=== PATIENT | male | born 1940 | race Caucasian/White ===

== ENCOUNTER 2020-02-23 08:01 | Day surgery (SDC) | payer OTHER ==
[2020-02-20 11:14] LABS: Absolute Lymphocytes (CBC) 2.9 K/uL (0.7-4.9); Basophils % 0.9 % (0-1.3); Hematocrit 45.6 % (39.6-49.0); Lymphocytes % 15.9 % (15.3-44.8); MPV 8.8 fL (7.6-11.3); RBC Red Blood Cell Count 4.85 M/uL (4.33-5.43)
[2020-02-20 11:17] LABS: Protime INR 0.88
[2020-02-20 11:34] LABS: Potassium 3.9 mmol/L (3.5-5.1)
--- NOTE | 2020-02-20 12:01 | RAD REPORT ---
EXAM DESCRIPTION: RAD - Chest Pa And Lat (2 Views) - 02/20/2020 10:52 am CLINICAL HISTORY: left heart cath, preop examination COMPARISON: CT chest September 15, AP chest March 2011 TECHNIQUE: Frontal and lateral views of the chest were obtained. FINDINGS: The lungs are fibrotic as a baseline with flattened diaphragm. Fibrotic changes in the exp anded right hemithorax are more pronounced at the base. Bullous changes are prominent in the upper ri ght lung field. Left hemithorax shows a reduced volume relative to the right. There is a dominant per ipheral subpleural fibrotic pattern present. No dense mass or consolidation. Failure and volume overl oad are not suspected. Heart size is normal and central vasculature is within normal limits. No pleural effusion or pneu mothorax seen. No acute bony finding noted. No aortic abnormality. IMPRESSION: Marked COPD pattern is present. Findings are most pronounced in the lateral aspect of th e volume reduced left hemithorax. When comparing with the August study, the chest findings are not clearly different.
[~2020-02-23 08:01] MED LIST: NA CHLORIDE 0.9% 500 ML ONE
[2020-02-23] MEDS ORDERED: HEPA 1000U/500MLS 2,000 UNIT/1,000 ML BAG IV ONE ×2 (08:46→08:50)
[2020-02-23] MEDS ORDERED: HEPARIN 5000 UNIT/ML 1 ML VIAL ONE (08:50)
[2020-02-23] MEDS ORDERED: MIDAZOLAM HCL 2 MG/2 ML INJ ONE (08:50)
[2020-02-23] MEDS ORDERED: FENTANYL CITR 100 MCG/2 ML ONE (08:50)
[2020-02-23] MEDS ORDERED: HEPARIN 10,000 UNIT/10 ML VIAL IV ONE (08:50)
[2020-02-23] MEDS ORDERED: NICARDIPINE HCL 25 MG/10 ML IV ONE (08:51)
[2020-02-23] MEDS ORDERED: NITROGLYCERIN 100 MCG/ML SYR (for cath lab use only) IV ONE (08:51)
[2020-02-23] MEDS ORDERED: ATROPINE SULF 1 MG/10 ML SYR IV ONE (08:51)
[2020-02-23 10:22] VITALS: TEMP 97.3
[2020-02-23 14:06] VITALS: BP 134/49; O2SAT 96
--- NOTE | 2020-02-24 01:10 | OP ---
Date of Procedure: 02/23/2020 Surgeon: JAXON LICONA Procedure Performed: 1.Selective coronary angiogram. 2.Left heart catheterization. Indication: Unstable angina. Access: Right radial artery 6-Wolof, closed with TR band. Total Sedation Time: 25 minutes. Complications: None. Bleeding: Less than 10 mL. Description Of Procedure: After risks, benefits, and alternatives were explained to the patient, the patient agreed to the procedure and signed informed consent. We accessed the right radial artery us ing pediatric micropuncture kit and placed a 6-Wolof slender sheath. Then, we took a 5-Wolof Beyer catheter into the aortic root over a J-wire, engaged the left coronary artery and then right coronar y artery, took standard views and then we took the J-wire across the aortic valve, passed the cathete r into the LV and we measured the LVEDP and then upon pullback, there was no difference in gradient. We took wires and catheters out and the sheath and we closed the access using TR band. Findings: 1.LEFT main is normal and large. 2.LAD is normal. Moderate size vessel with no disease. 3.Left circumflex is normal, moderate size vessel. No disease. 4.Ramus intermedius is a moderate size vessel, has a mid 50% stenosis. 5.RCA is normal vessel and is dominant. No disease. LVEDP measured 21 mmHg. Impression: [id number] ramus intermedius disease, otherwise normal coronary arteries. Elevated left ventricular end-diastolic pressure. Recommendation: 1.Aggressive medical management of coronary artery disease and he might benefit from introduction of diuretics as well. 2.Discharge home once discharge criteria are met and follow up in the office in 4 weeks. /ABELL Voice ID: [id number] Report ID: [id number]
== END 2020-02-23 13:25 | disposition home or self-care (01) ==
LOC: CCL 08:01
PROVIDERS: ATTEND Internal Medicine
DX: I25.110 Atherosclerotic heart disease of native coronary artery with unstable angina pectoris (principal); I10 Essential (primary) hypertension; R42 Dizziness and giddiness; F17.210 Nicotine dependence, cigarettes, uncomplicated; Z11.59 Encounter for screening for other viral diseases
CPT/HCPCS: 85025; 80048; 36415; 85610; 85730; 71046; 93458; U0002; C1893; J1644 ×3; J2250; J3010; J7040

== ENCOUNTER 2020-09-27 09:13 | Inpatient (IN) | payer OTHER ==
[2020-09-24 14:03] LABS: Absolute Lymphocytes (CBC) 2.4 K/uL (0.7-4.9); Basophils % 1.5 % (0-1.3); Hematocrit 36.9 % (39.6-49.0); Lymphocytes % 10.1 % (15.3-44.8); MPV 8.1 fL (7.6-11.3); RBC Red Blood Cell Count 4.51 M/uL (4.33-5.43)
[2020-09-24 14:19] LABS: BUN Blood Urea Nitrogen 10 mg/dL (7-18); Bicarbonate 24 mmol/L (21-32); Glucose Level 88 mg/dL (74-106); Potassium 3.9 mmol/L (3.5-5.1); Sodium Level 130 mmol/L (136-145)
[2020-09-24 14:27] LABS: Protime INR 0.9
--- NOTE | 2020-09-24 14:30 | RAD REPORT ---
EXAM DESCRIPTION: RAD - Chest Pa And Lat (2 Views) - 09/24/2020 2:19 pm CLINICAL HISTORY: pre op Chest pain. COMPARISON: Chest Pa And Lat (2 Views) dated 07/21/2020; Chest Pa And Lat (2 Views) dated 02/20/2020; CHEST SINGLE VIEW dated 04/10/2011; Thorax Wo Con dated 09/15/2019 FINDINGS: Emphysematous changes are present with scarring noted particularly along the periphery of both lungs. Focal prominent opacity seen in the posterior aspect of the lungs is present. This may be an elevated hemidiaphragm but appears more prominent than on prior studies. The heart is normal in s ize. Follow-up CT chest would be recommended to evaluate the focal density seen posteriorly on the la teral projection. IMPRESSION: Prominent COPD pattern with scarring present. Focal density in the posterior aspect of the lungs seen on the lateral projection, appearing more pro minent than on prior study. Recommend CT chest followup assessment.
[2020-09-24 14:36] LABS: Blood Morphology Comment NOT SEEN (NOT SEEN); Platelet Estimate INCR
[2020-09-27] MEDS ORDERED: NA CHLORIDE 0.9% 500 ML ONE (10:32)
[2020-09-27] MEDS ORDERED: HEPA 1000U/500MLS 2,000 UNIT/1,000 ML BAG IV ONE (12:41)
[2020-09-27] MEDS ORDERED: LIDOCAINE 1% 20 ML MDV ONE (12:41)
[2020-09-27] MEDS ORDERED: FENTANYL CITR 100 MCG/2 ML ONE (13:08)
[2020-09-27] MEDS ORDERED: MIDAZOLAM HCL 2 MG/2 ML INJ ONE (13:08)
[2020-09-27] MEDS ORDERED: HYDRALAZINE HCL 20 MG/ML VIAL ONE (13:42)
[2020-09-27] MEDS ORDERED: METOPROLOL TARTRATE 5 MG/5 ML INJ IV ONE (13:46)
--- NOTE | 2020-09-27 13:58 | OP ---
Surgeon: Loi Bradley MD Advertising Assistant Manager: Mr. He. I would like to note that the patient received IV hydralazine 10 mg and IV Lopressor 5 mg for severe hypertension during the procedure. He will go home after 2 hours of bedrest assuming he is doing wel l and his blood pressure has improved. He was slightly hypoxic and he has chronic COPD. We will obs erve that. I will see him in the office soon as an outpatient. I will discuss with him and his fami ly the need for further care regarding his legs. Indication: The patient was admitted for peripheral arterial disease, claudication, abnormal arteria l Doppler. He underwent an abdominal angiogram with runoff. Procedure In Detail: He was brought to the equipment operator/laborer as an outpatient, prepped and draped in the rout ine sterile fashion. Given Versed and fentanyl for sedation. A 6-Chinese sheath was introduced in th e right common femoral artery successfully. StarClose was used to close the case. A pigtail cathete r was advanced above the renal. Abdominal angiogram with runoff revealed normal renals, normal dista l aorta, common iliacs, and common femorals. He had 100% occlusion of bilateral SFA from the ostium all the way to just above the popliteal. Both vessels were reconstituted at the popliteal with fairl y distant flow. There were no complications. Blood loss was 5 cc. Total conscious sedation was 45 minutes. Postoperative Diagnosis: Severe peripheral arterial disease. Plan: Plan is for possible bilateral femoral-popliteal surgery. RADHA/TONIO Voice ID: [id number] Report ID: [id number]
[2020-09-27] MEDS ORDERED: NA CHLORIDE 0.9% 250 ML ONE (14:40)
--- NOTE | 2020-09-27 17:15 | EKG ---
Test Date: 2020-09-24 Test Time: 13:20:55 Otolaryngology Teacher: KERA MEASUREMENT RESULTS: Intervals: Rate: 93 AL: 154 QRSD: 82 QT: 358 QTc: 445 [place]: P: 94 AL: 154 QRS: 98 T: 7 INTERPRETIVE STATEMENTS: Suspect arm lead reversal, interpretation assumes no reversal Sinus rhythm with marked sinus arrhythmia with occasional premature ventricular complexes Septal infarct, age undetermined Lateral infarct, age undetermined Abnormal ECG Compared to ECG 04/10/2011 02:43:48 Ventricular premature complex(es) now present Myocardial infarct finding now present Electronically Signed On 09-27-20 17:07:01 CONSUMER AFFAIRS DIRECTOR by Loi Bradley
[2020-09-27] MEDS ORDERED: NITROGLYCERIN 0.4 MG/TAB SL PRN (18:17)
[2020-09-27] MEDS ORDERED: ACETAMINOPHEN 325 MG TABLET PO PRN (18:17)
[2020-09-27] MEDS ORDERED: IBUPROFEN 400 MG TAB PO PRN (18:20)
[2020-09-27] MEDS: CODEINE 30MG/APAP 300MG TAB PO PRN (20:53)
[2020-09-27] MEDS: NA CHLORIDE 0.9% 1,000 ML IV SCH (20:53)
[2020-09-27] MEDS ORDERED: CODEINE 30MG/APAP 300MG TAB PO PRN (21:15)
[2020-09-27] MEDS: CEFTRIAXONE/SWI 1gm 1 GM/10 ML SYR IV SCH (22:41)
[2020-09-28 05:55] LABS: Absolute Lymphocytes (CBC) 1.9 K/uL (0.7-4.9); Basophils % 0.5 % (0-1.3); Hematocrit 35.3 % (39.6-49.0); Lymphocytes % 9.8 % (15.3-44.8); MPV 7.6 fL (7.6-11.3)
[2020-09-28 06:09] LABS: BUN Blood Urea Nitrogen 10 mg/dL (7-18); Bicarbonate 22 mmol/L (21-32); Glucose Level 86 mg/dL (74-106); Potassium 3.2 mmol/L (3.5-5.1); Sodium Level 138 mmol/L (136-145)
[2020-09-28] MEDS: CODEINE 30MG/APAP 300MG TAB PO PRN ×2 (07:42→18:02)
[2020-09-28] MEDS: DULOXETINE 30 MG CAP PO SCH ×2 (07:43→09:00)
[2020-09-28] MEDS: CEFTRIAXONE/SWI 1gm 1 GM/10 ML SYR IV SCH (07:44)
[2020-09-28] MEDS: VITAMIN D 400 UNIT TAB PO SCH ×2 (07:44→21:34)
[2020-09-28] MEDS ORDERED: CEFTRIAXONE/SWI 1gm 1 GM/10 ML SYR IV SCH (09:00)
[2020-09-28] MEDS ORDERED: POTASSIUM CL SA 10 MEQ TAB PO SCH (09:00)
[2020-09-28] MEDS: VITAMIN D3 PO SCH (09:00)
[2020-09-28] MEDS: PRESERVISION AREDS 2 PO SCH (09:00)
[2020-09-28] MEDS ORDERED: CEFTRIAXONE 1 GM/NS 50 ML 50 ML IV SCH (09:00)
[2020-09-28] MEDS: NA CHLORIDE 0.9% 1,000 ML IV SCH (09:18)
--- NOTE | 2020-09-28 10:19 | RAD REPORT ---
EXAM DESCRIPTION: CT - Thorax W/ Con - 09/28/2020 9:25 am CLINICAL HISTORY: C34.12,R91.8 COMPARISON: August 2019 TECHNIQUE: Computed axial tomography of the chest was obtained. 100 cc Isovue 300 was administered i ntravenously. All CT scans are performed using dose optimization technique as appropriate and may include automated exposure control or mA/KV adjustment according to patient size. FINDINGS: Marked COPD. Postsurgical changes involve the left lung. Development of a subcentimeter sp iculated opacity right upper lobe Mild right and [id number] left pulmonary fibrosis. Tiny right lung nodule are unchanged likely benign. Unchanged thyroid nodules No mediastinal or hilar lymphadenopathy is seen. A pleural effusion is not present. A pericardial effusion is not seen. Unchanged compression deformity lumbar spine IMPRESSION: Development of a subcentimeter spiculated opacity right upper lobe is nonspecific and ca n be monitored on a followup CT in 3 months
--- NOTE | 2020-09-28 12:58 | P.HP ---
Certification for Inpatient Patient admitted to: Inpatient With expected LOS: >2 Midnights Practitioner: I am a practitioner with admitting privileges, knowledge of patient current condition, hospital course, and medical plan of care. Services: Services provided to patient in accordance with Admission requirements found in Title 42 Section 412.3 of the Code of Federal Regulations Patient History Date of Service: 09/28/20 Reason for admission: HYPOXIA History of Present Illness: MR. CARREON IS A SEVERE COPD PATIENT WHO HAS HAS ANGIOGRAM FOR PVD AND HAS SEVERE PVD NEEDING FEM POP BYPASS SURGERY BUT WITH HIS POOR LUNG CONDITION HE WILL NOT BE ABLE TO SURVIVE. HE HAD HYPOXIA AFTER CATH AND WBC COUNT OF 24K SO WE DECIDED TO ADMIT HIM. I HAD HIM GET A DOSE OF ROCEPHIN LAST NIGHT SUSPECTING ASPIATION BUT CT CHEST DOES NOT SHOW PNEUMONIA. Allergies No Known Allergies Allergy (Verified 09/24/20 13:45) Home medications list reviewed: Yes Home Medications: Cholecalciferol (Vitamin D3) [Vitamin D3] 1 tab PO BID 09/27/20 Codeine/APAP [Tylenol #3*] 1 tab PO BID PRN 09/27/20 Duloxetine HCl [Cymbalta] 60 mg PO DAILY 09/27/20 Ibuprofen [Advil] 400 mg PO DAILY PRN 09/27/20 Vit C/E/Zn/Coppr/Lutein/Zeaxan [Preservision Areds 2 Softgel] 1 cap PO DAILY 09/27/20 - Past Medical/Surgical History Has patient received pneumonia vaccine in the past: Yes -: CAD -: pvd -: htn -: PULMONARY HTN -: COPD - Social History Smoking Status: Current every day smoker Alcohol use: Yes CD- Drugs: No Caffeine use: Yes Place of Residence: Home Review of Systems 10-point ROS is otherwise unremarkable General: Weakness, Malaise Respiratory: Shortness of Breath Physical Examination - Vital Signs Temperature: 98.1 F Blood Pressure: 174/81 Pulse: 69 Respirations: 20 Pulse Ox (%): 95 - Physical Exam General: Oriented x3, Mild distress HEENT: Atraumatic, PERRLA, Mucous membr. moist/pink, EOMI, Sclerae nonicteric Neck: Supple, 2+ carotid pulse no bruit, No LAD, Without JVD or thyroid abnormality Respiratory: Diminished Cardiovascular: Regular rate/rhythm, Normal S1 S2 Gastrointestinal: Normal bowel sounds, No tenderness Musculoskeletal: No tenderness Integumentary: No rashes Neurological: Normal gait, Normal speech, Normal strength at 5/5 x4 extr, Normal tone, Normal affect Lymphatics: No axilla or inguinal lymphadenopathy - Studies Laboratory Data (last 24 hrs) 09/28/20 05:32: Sodium 138, Potassium 3.2 L, BUN 10, Creatinine 0.69, Glucose 86 09/28/20 05:32: WBC 19.10 H D, Hgb 11.3 L, Hct 35.3 L, Plt Count 443 H Assessment and Plan - Problems (Diagnosis) (1) COPD with hypoxia Current Visit: Yes Status: Chronic Plan: HE HAS END STAGE COPD. HE IS ON THE VERGE OF RAPID DECLINE. HE STILL LIVES ALONE. SMOKING HAS DONE SEVERE DAMAGE. (2) Leukocytosis Current Visit: Yes Status: Acute Plan: WBC CAME DOWN FROM 24K TO 19K. (3) PVD (peripheral vascular disease) Current Visit: Yes Status: Chronic Plan: SEVERE PVD FROM SMOKING. NOT OPERABLE HIS MEDICAL CONDITION IS POOR. - Advance Directives Does patient have a Living Will: No Does patient have a Durable POA for Healthcare: No
[2020-09-28] MEDS: AMLODIPINE 2.5 MG TAB PO SCH (22:04)
[2020-09-29 06:00] LABS: Absolute Lymphocytes (CBC) 2.2 K/uL (0.7-4.9); Basophils % 0.8 % (0-1.3); Hematocrit 35.1 % (39.6-49.0); Lymphocytes % 10.8 % (15.3-44.8); MPV 7.6 fL (7.6-11.3); RBC Red Blood Cell Count 4.34 M/uL (4.33-5.43)
[2020-09-29 06:11] LABS: BUN Blood Urea Nitrogen 8 mg/dL (7-18); Bicarbonate 24 mmol/L (21-32); Glucose Level 90 mg/dL (74-106); Potassium 3.3 mmol/L (3.5-5.1); Sodium Level 134 mmol/L (136-145)
[2020-09-29 07:43] LABS: Blood Morphology Comment NOT SEEN (NOT SEEN); Platelet Estimate INCR; Platelets, Giant FEW
[2020-09-29] MEDS: CODEINE 30MG/APAP 300MG TAB PO PRN ×2 (08:44→21:18)
[2020-09-29] MEDS: CEFTRIAXONE/SWI 1gm 1 GM/10 ML SYR IV SCH (08:44)
[2020-09-29] MEDS: DULOXETINE 30 MG CAP PO SCH ×3 (08:45→09:00)
[2020-09-29] MEDS: AMLODIPINE 2.5 MG TAB PO SCH (08:45)
[2020-09-29] MEDS: VITAMIN D 400 UNIT TAB PO SCH ×2 (08:46→21:15)
[2020-09-29] MEDS: SPIRONOLACTONE 25 MG TABLET PO SCH (08:46)
[2020-09-29] MEDS: POTASSIUM CL SA 10 MEQ TAB PO SCH ×2 (08:46→21:15)
[2020-09-29] MEDS: PRESERVISION AREDS 2 PO SCH (09:00)
[2020-09-29] MEDS: VITAMIN D3 PO SCH (09:00)
--- NOTE | 2020-09-29 10:51 | RAD REPORT ---
EXAM DESCRIPTION: CTAbdomen Pelvis W Contrast - 09/29/2020 9:45 am CLINICAL HISTORY: Abdominal pain. LEUKOCYTOSIS COMPARISON: Thorax W/ Con dated 09/28/2020; Thorax Wo Con dated 09/15/2019 TECHNIQUE: Biphasic CT imaging of the abdomen and pelvis was performed with 100 ml non-ionic IV cont rast. All CT scans are performed using dose optimization technique as appropriate and may include automated exposure control or mA/KV adjustment according to patient size. FINDINGS: Emphysematous changes are present in both lung bases. Mild diffuse fatty liver is present. No intra or extrahepatic biliary tree dilatation. The spleen, pa ncreas, adrenal glands and kidneys are within normal limits. Aortoiliac atherosclerosis. Multiple areas of omental soft tissue is present. For example, left lower quadrant anterior omental s oft tissues measuring 4.4 cm and along the anterior aspect of the pelvis measuring 11.6 x 4.0 cm. Num erous soft tissue implants are present in anterior abdominal and pelvic fat. Prominent diverticulosis is present involving the sigmoid colon with wall thickening. 3.5 cm soft tis regina mass is suspected involving the transverse colon in the left upper quadrant (image 39/48). No lytic or blastic bone lesion. IMPRESSION: Extensive omental carcinomatosis is present. This may be related to 3.5 cm transverse co estrellita soft tissue mass/malignancy. Recommend direct visualization with colonoscopy for followup.
[2020-09-29 12:59] LABS: Urine Appearance CLEAR; Urine Bilirubin NEGATIVE (NEG); Urine Blood NEGATIVE (NEG); Urine Color YELLOW; Urine Glucose NEGATIVE (NEG); Urine Protein TRACE (NEG); Urine Specific Gravity >=1.030 (1.005-1.030); Urine Urobilinogen 0.2 mg/dL (0.2-1.0)
[2020-09-29 13:27] LABS: Urine Bacteria <20 /HPF (NONE SEEN); Urine RBC <5 /HPF (NONE SEEN)
--- NOTE | 2020-09-29 20:46 | P.PN ---
Subjective Date of Service: 09/29/20 Chief Complaint: HYPOXIA Subjective: No C/O voiced MR. CARREON WANTS TO GO HOME. I TOLD HIM THAT WHAT I CAN'T EXPLAIN IS WHY HE HAS WBC ELEVATION BUT NO SIGNS OF INFECTION. HE HAS NO FEVER, NO COUGH, NO ABDOMEN PAIN. Review of Systems 10-point ROS is otherwise unremarkable General: Weakness Physical Examination - Vital Signs Temperature: 98.6 F Blood Pressure: 147/76 Pulse: 89 Respirations: 18 Pulse Ox (%): 97 - Physical Exam General: Alert, In no apparent distress, Oriented x3, Cachectic HEENT: Atraumatic, PERRLA, EOMI Neck: Supple, JVD not distended Respiratory: Clear to auscultation bilaterally, Normal air movement Cardiovascular: Regular rate/rhythm, Normal S1 S2 Gastrointestinal: Normal bowel sounds, No tenderness Musculoskeletal: No tenderness Integumentary: No rashes Neurological: Normal speech, Normal tone, Normal affect Lymphatics: No axilla or inguinal lymphadenopathy - Studies Laboratory Data (last 24 hrs) 09/29/20 05:32: Sodium 134 L, Potassium 3.3 L, BUN 8, Creatinine 0.73, Glucose 90 09/29/20 05:32: WBC 20.20 H*, Hgb 11.5 L, Hct 35.1 L, Plt Count 429 H Microbiology Data (last 24 hrs): 09/28/20 21:01 Blood - Blood Anaerobic Blood Culture - Final 09/28/20 21:08 Blood - Blood Anaerobic Blood Culture - Final Medications List Reviewed: Yes Assessment And Plan - Current Problems (Diagnosis) (1) COPD with hypoxia Current Visit: Yes Status: Chronic Plan: HE HAS END STAGE COPD. HE IS ON THE VERGE OF RAPID DECLINE. HE STILL LIVES ALONE. SMOKING HAS DONE SEVERE DAMAGE. (2) Leukocytosis Current Visit: Yes Status: Acute Plan: WBC CAME DOWN FROM 24K TO 19K. IT IS UNCLEAR WHY HE HAS WBC ELEVATION. I ORDERED CT SCAN OF CHEST AND ABDOMEN TO SEE OCCULT CAUSES OF INFECTION. (3) PVD (peripheral vascular disease) Current Visit: Yes Status: Chronic Plan: SEVERE PVD FROM SMOKING. NOT OPERABLE HIS MEDICAL CONDITION IS POOR. 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 THIS IS A NEW FINDING FOR HIM. [facility]. THIS SEEMS TO BE SECOND MALIGNANCY. 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 HE IS 80 , FRAIL WITH SEVERE COPD, SEVERE PVD AND CACHEXIA. HE CAN'T WITHSTAND ANY CHEMOTHERAPY AT THIS POINT. I WILL DISCUSS WITH HIM IN AM AND [facility] AND LET HIM DECIDE.
[2020-09-30 06:04] LABS: Absolute Lymphocytes (CBC) 2.2 K/uL (0.7-4.9); Hematocrit 35.7 % (39.6-49.0); Lymphocytes % 12.1 % (15.3-44.8); MPV 7.6 fL (7.6-11.3); RBC Red Blood Cell Count 4.32 M/uL (4.33-5.43)
[2020-09-30 06:18] LABS: BUN Blood Urea Nitrogen 8 mg/dL (7-18); Bicarbonate 25 mmol/L (21-32); Glucose Level 83 mg/dL (74-106); Potassium 3.8 mmol/L (3.5-5.1); Sodium Level 137 mmol/L (136-145)
[2020-09-30] MEDS: DULOXETINE 30 MG CAP PO SCH ×2 (09:00→09:40)
[2020-09-30] MEDS: VITAMIN D3 PO SCH (09:00)
[2020-09-30] MEDS: PRESERVISION AREDS 2 PO SCH (09:00)
[2020-09-30] MEDS: POTASSIUM CL SA 10 MEQ TAB PO SCH (09:40)
[2020-09-30] MEDS: VITAMIN D 400 UNIT TAB PO SCH (09:40)
[2020-09-30] MEDS: AMLODIPINE 2.5 MG TAB PO SCH (09:41)
[2020-09-30] MEDS: CODEINE 30MG/APAP 300MG TAB PO PRN (09:41)
[2020-09-30] MEDS: CEFTRIAXONE/SWI 1gm 1 GM/10 ML SYR IV SCH (09:41)
[2020-09-30] MEDS: SPIRONOLACTONE 25 MG TABLET PO SCH (09:41)
[2020-09-30 10:32] VITALS: O2SAT 94
[2020-09-30 17:15] VITALS: BP 138/68; TEMP 97
--- NOTE | 2020-09-30 21:03 | P.DS ---
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 CARREON IS A SEVERE COPD PATIENT WHO HAS HAS ANGIOGRAM FOR PVD AND HAS SEVERE PVD NEEDING FEM POP BYPASS SURGERY BUT WITH HIS POOR LUNG CONDITION HE WILL NOT BE ABLE TO SURVIVE. HE HAD HYPOXIA AFTER CATH AND WBC COUNT OF 24K SO WE DECIDED TO ADMIT HIM. I HAD HIM GET A DOSE OF ROCEPHIN LAST NIGHT SUSPECTING ASPIATION BUT CT CHEST DOES NOT SHOW PNEUMONIA. Hospital Course: MR. CARREON HAS BEEN TOLD ABOUT METASTATIC CANCER. I ALSO OFFERED HIM TO GO TO ONCOLOGIST OR GO TO HOSPICE AT AGE OF 80, WITH POOR GENERAL CONDITION, CHEMO THERAPY WILL MOST LIKELY WILL NOT BENEFIT HIS LIFESPAN FOR STAGE 4 CANCER PATIENT. HE WILL DECIDE AFTER TALKING TO THE SON. Vital Signs/Physical Exam: Temp Pulse Resp BP Pulse Ox 97.0 F 88 18 138/68 96 09/30/20 16:00 09/30/20 16:00 09/30/20 16:00 09/30/20 16:00 09/30/20 16:00 Laboratory Data at Discharge: WBC 18.40 K/uL (4.3-10.9) H 09/30/20 05:49 Hgb 11.5 g/dL (13.6-17.9) L 09/30/20 05:49 Hct 35.7 % (39.6-49.0) L 09/30/20 05:49 Plt Count 435 K/uL (152-406) H 09/30/20 05:49 PT 10.3 SECONDS (9.5-12.5) 09/24/20 13:34 INR 0.90 09/24/20 13:34 APTT 29.9 SECONDS (24.3-36.9) 09/24/20 13:34 Sodium 137 mmol/L (136-145) 09/30/20 05:49 Potassium 3.8 mmol/L (3.5-5.1) 09/30/20 05:49 BUN 8 mg/dL (7-18) 09/30/20 05:49 Creatinine 0.65 mg/dL (0.55-1.3) 09/30/20 05:49 Glucose 83 mg/dL (74-106) 09/30/20 05:49 Home Medications: Cholecalciferol (Vitamin D3) [Vitamin D3] 1 tab PO BID 09/27/20 Codeine/APAP [Tylenol #3*] 1 tab PO BID PRN 09/27/20 Duloxetine HCl [Cymbalta] 60 mg PO DAILY 09/27/20 Ibuprofen [Advil] 400 mg PO DAILY PRN 09/27/20 Vit C/E/Zn/Coppr/Lutein/Zeaxan [Preservision Areds 2 Softgel] 1 cap PO DAILY 09/27/20 Physician Discharge Instructions: PROBLEM: COPD with hypoxia. GOAL: Clear understanding of disease process INSTRUCTIONS: Diet: heart healthy Activity: as tolerated If you have any questions regarding your stay call [phone] If your symptoms worsen call 911 or go to the ED. Please follow up with Dr. Aj. Call this week to make an appointment. Followup: Conner Edwards MD [Primary Care Provider] - Ceci Aj MD [ACTIVE - CAN ADMIT] - (Please call this week to make an appointment. )
--- NOTE | 2020-10-04 11:28 | PN ---
Date of Progress Note: 09/28/2020 Subjective: Mr. Alejo basically had an abdominal angiogram with runoff on 09/27/2020. Abdominal a ngiogram with runoff showed normal distal aorta, iliacs, and femoral. He had 100% occlusion of bilat eral SFA from the ostium all the way to just above the popliteal, both vessels reconstituted at the p opliteal level with good distal flow. There were no complications. However, the patient was hyperte nsive and hypoxic before and after the procedure. He received hydralazine and Lopressor for his bloo d pressure that is improved. He has chronic hypoxia secondary to chronic severe COPD. I felt uncomf ortable with him going home and I admitted him overnight. Dr. Edwards saw him. He did get a chest CT on him, which showed development of small spiculated opacity in the right upper lobe, otherwise mostl y marked COPD. He was feeling a little better on 09/28/2020. He wanted to go home. He had no fever , cough, or pain. He did have an elevated white count, which was improving. I think he was going to be going home with diagnoses of end-stage COPD, possible oxygen at home, severe peripheral vascular disease. Probably not very good candidate for surgery. White count was being observed. CT of the a bdomen was pending. I will see him as an outpatient. RADHA/TONIO Voice ID: [id number] Report ID: [id number]
== END 2020-09-30 19:28 | disposition home or self-care (01) | DRG 178 ==
LOC: CCL 09:13 → 2ND 13:00 → CCL 17:40 → 2ND 09-28 17:14 → CCL 09-28 17:14 → 2ND 09-28 17:50
PROVIDERS: ADMIT Internal Medicine; ATTEND Internal Medicine
PROC: B41F1ZZ Fluoroscopy of Right Lower Extremity Arteries using Low Osmolar Contrast (ICD-10-PCS; principal; 2020-09-27)
PROC: B4101ZZ Fluoroscopy of Abdominal Aorta using Low Osmolar Contrast (ICD-10-PCS; 2020-09-27)
DX: J69.0 Pneumonitis due to inhalation of food and vomit (principal); Z68.1 Body mass index [BMI] 19.9 or less, adult; C78.6 Secondary malignant neoplasm of retroperitoneum and peritoneum; C34.90 Malignant neoplasm of unspecified part of unspecified bronchus or lung; E44.0 Moderate protein-calorie malnutrition; I73.9 Peripheral vascular disease, unspecified; J44.9 Chronic obstructive pulmonary disease, unspecified; I10 Essential (primary) hypertension; D72.829 Elevated white blood cell count, unspecified; I25.10 Atherosclerotic heart disease of native coronary artery without angina pectoris; F17.210 Nicotine dependence, cigarettes, uncomplicated; R09.02 Hypoxemia; Z60.2 Problems related to living alone; Z20.822 Contact with and (suspected) exposure to COVID-19
CPT/HCPCS: 36200; 36415; 71046; 71260; 74177; 75630; 80048; 81001; 85025; 85610; 85730; 87040; 93005; J0360; J0696; J1644; J2250; J3010; J7030; J7040; J7050; Q9967; U0003